=== PATIENT | male | born 1960 | race Caucasian/White ===

== ENCOUNTER → 2019-06-13 | Outpatient (CLI) | payer SELFPAY ==
[2019-06-13 18:18] LABS: ALB/GLOB Ratio 1.1 RATIO (0.9-2.4); AST(SGOT) 24 U/L (15-37); Alanine Aminotransfer ALT/SGPT 33 U/L (16-61); Albumin, Serum 4.1 g/dL (3.2-5.0); Alkaline Phosphatase 66 U/L (45-117); Anion Gap 6 (5-15); BUN 14 mg/dL (7-18); BUN/Creat Ratio 11.6 RATIO (10-20); Calcium,Total 9.3 mg/dL (8.5-10.1); Chloride 106 mmol/L (98-107); Cholesterol 150 mg/dL (200); Creatinine, Serum 1.21 mg/dL (0.70-1.30); EST Glomerular Filtration Rate 65 mL/min (>60); Est Glom Filt Rate - Afr Amer 79 mL/min (>60); Globulin 3.8 g/dL (2.2-4.2); Glucose 80 mg/dL (74-106); High Density Lipoprotein 70 mg/dL; PSA,Total - Annual Screen 2.15 ng/mL (0.00-4.00); Potassium 3.9 mmol/L (3.5-5.1); Protein, Total 7.9 g/dL (6.4-8.2); Sodium Level 139 mmol/L (136-145); Triglycerides 49 mg/dL; Very Low Density Lipoprotein 10 mg/dL (5-40)
== END | disposition home or self-care (01) ==
LOC: MFPLAB 14:40
PROVIDERS: Nurse Practitioner Family; Visit Provider Family Medicine
DX: E78.5 Hyperlipidemia, unspecified (principal); Z12.5 Encounter for screening for malignant neoplasm of prostate
CPT/HCPCS: 36415; 80053; 80061; 84153; G0103

== ENCOUNTER 2020-07-13 08:00 | Outpatient (RCR) | payer SELFPAY ==
--- NOTE | 2020-06-08 11:49 | HP.PTEVAL ---
Patient's Visit Information KEVIN ARNOLD is a 60 year old M referred to Physical Therapy by Dr. Oscar Cruz MD with a diagnosis of LPB with Sciatica. Date of Evaluation: 06/08/20 Physical Therapist: Nahomi Galindo DPT - Visit Plan Frequency: 2x /Week Duration: 4 Weeks Plan: Willie next visit for evaluation of Cherry - Subjective Patient reports that he has done something to his back- bending over to pick something up it popped and he fell over- fathers day weekend. 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 This has happened before but has always gone away. Pain is located down the left leg on the outside and to the toes- has N/T in the toes- more spot local pain throughout and in the left buttock. Sitting bothers him the most- he can stand and walk- can ride a bike without pain. Sleep: not disturbed- right side sleeper. Laying on his belly and doing press ups seems to help. Anthony came him a muscle relaxer and he had some Naproxen that he is also taking with it which really helps. Morning is worse and as he goes throughout the day it gets better. Worst: 05/09 Best: 03/09. Constant ache down the leg. No loss or change in bowel or bladder. Has had intermittent back pain throughout the years 2-3 times but normally on the right side. Work: traveling in the car a lot- hard to get in vs out. PMHx: cholesterol Meds: statin - Objective Posture: FH, RS- can correct but does not maintain even with back support and lumbar roll. Gait: no deviation noted- good arm swing and trunk rotation. ROM: WNL in all planes reports pain with lumbar flexion. Sensation: diminished on left lateral calf and toes. Reflex: dimished on the left. Palpation: not tender to touch. Strength: Core: fair minus, Hip: 4+/5, Knee: 5/5, Ankle: 5/5. Flex: HS: severe, Gastroc: severe. Special Test: prone: diminished symptoms flexion:increases symptoms - Goals Goal 1:: Patient will be I with HEP and progression Goal Time Frame: 4-6 Weeks Goal 2:: Patient will maintain proper posture t/o tx session to demo increased core s/s. Goal Time Frame: 4-6 Weeks Goal 3:: Patient will report no s/s down the left le Goal Time Frame: 4-6 Weeks - Rehabilitation Potential Physical Therapy Diagnosis: Patient presents with hypomobility- he has decreased ROM, strength, flex and muscular endurance leading to poor posture and increased pain with ADL's. Rehabilitation Potential: Good - Anticipated Interventions Patient/Client Instruction: Educate patient on: Benefits of Fitness Program Therapeutic Exercise to Include: Strength training, Endurance training, Balance training, Coordination, Agility training, Body mechanics, Postural training, Flexibilty training, Gait and locomotor training, Passive ROM, Active ROM, Dynamic Lumbar Stabilization, Cherry Exercises, Scapular Strength/Stabilization For the Purpose of:: To improve muscle performance and motor function TENS: Yes Cryotherapy (ice pack, ice massage): Yes Thermo therapy (hot pack): Yes For the Purpose of:: To decrease pain Thank you for the opportunity to evaluate your patient. For Medicare and Medicare HMO plans, please review the plan of care and approve it. It will need to be FAXED BACK to us at [phone] for Medicare purposes. For Medicare only, by signing this I certify the plan of care. Please let me know if there are questions or concerns regarding this plan of care. Physician Signature: Date:
--- NOTE | 2020-08-27 16:18 | HP.PT.NRP ---
KEVIN ARNOLD was seen in my office for initial evaluation on 06/08/20. The following Plan of Care was established for this patient: Initial Frequency: 2x /Week Initial Duration: 4 Weeks Patient/Client Instruction: Educate patient on: Benefits of Fitness Program Therapeutic Exercise to Include: Strength training, Endurance training, Balance training, Coordination, Agility training, Body mechanics, Postural training, Flexibilty training, Gait and locomotor training, Passive ROM, Active ROM, Dynamic Lumbar Stabilization, Cherry Exercises, Scapular Strength/Stabilization For the Purpose of:: To improve muscle performance and motor function TENS: Yes Cryotherapy (ice pack, ice massage): Yes Thermo therapy (hot pack): Yes For the Purpose of:: To decrease pain This patient was last seen in our office . Pertinent comments regarding their Physical therapy will appear below: Patient has not returned to PT in over 6 weeks- appropriate for d/c and return to MD for further evaluation as needed. At this point I will be discontinuing this patient from physical therapy. I would be happy to see this patient again in the future if found appropriate by the physician. Thank you! Nahomi Galindo DPT
== END 2020-07-13 19:00 | disposition home or self-care (01) ==
LOC: PT 08:00
PROVIDERS: Referring Provider Family Medicine; Visit Provider Family Medicine
DX: M54.40 Lumbago with sciatica, unspecified side (principal)
CPT/HCPCS: 97014; 97110; 97162; G0283

== ENCOUNTER → 2020-08-09 16:55 | Outpatient (CLI) | payer SELFPAY ==
--- NOTE | 2020-08-09 17:08 | MRI_ITS ---
STUDY: MRI LUMBAR SPINE WITHOUT CONTRAST REASON FOR EXAM: Male, 60 years old. back pain, numbness down left leg to foot TECHNIQUE: Standardized fat and water weighted pulse sequences were obtained in the sagittal and axial planes. COMPARISON: None FINDINGS: T12-L1: Narrowed disc space with desiccation of the disc. No focal disc protrusion. Normal bilateral facet joints. Normal central canal and bilateral lateral recesses. Normal bilateral intervertebral neural foramina. Normal lumbar lordosis. There is no substantial scoliosis. Normal conus medullaris that terminates at T12-L1 L1-2: Narrowed disc space with mild endplate spurring. Desiccation of the disc and minimal annular bulge.. Normal bilateral facet joints. Normal central canal and bilateral lateral recesses. Normal bilateral intervertebral neural foramina. L2-3: Normal endplates. Normal disc height, hydration and morphology. Normal bilateral facet joints. Normal central canal and bilateral lateral recesses. Normal bilateral intervertebral neural foramina. L3-4: Normal endplates. Normal disc height, hydration and morphology. Normal bilateral facet joints. Normal central canal and bilateral lateral recesses. Normal bilateral intervertebral neural foramina. L4-5: Normal endplates. Normal disc height, desiccation and mild annular bulge.. Bilateral facet arthropathy and thickening of ligamenta flava slightly greater on the left. Normal central canal and bilateral lateral recesses. Mild bilateral neuroforaminal encroachment. L5-S1: Normal endplates. Normal disc height, desiccation and minor annular bulge with tiny central disc protrusion.. Mild facet arthropathy and thickening of ligamenta flava. Normal central canal and bilateral lateral recesses. Mild bilateral neuroforaminal stenosis. Normal visualized sacral ala. Normal visualized paraspinous soft tissue structures. MRI/Spine Lumbar (Routine) IMPRESSION: No evidence for acute fracture or other significant bony pathology.. Mild spondylosis. Mild spinal stenosis at L4-5 and L5-S1 secondary to bulging annuli and facet arthropathy with thickening of ligamenta flava Electronically Signed: Kenton Santoro MD at 21:46 EDT , Service support ,
== END ==
PROVIDERS: PCP Family Medicine; Referring Provider Family Medicine; Visit Provider Family Medicine
DX: M54.9 Dorsalgia, unspecified (principal)
CPT/HCPCS: 72148

== ENCOUNTER → 2020-08-22 08:06 | Outpatient (CLI) | payer SELFPAY ==
[2020-08-22 10:20] LABS: Anion Gap 3 (5-15); BUN 14 mg/dL (7-18); BUN/Creat Ratio 11.7 RATIO (10-20); Calcium,Total 9.6 mg/dL (8.5-10.1); Chloride 105 mmol/L (98-107); Cholesterol 167 mg/dL (200); EST Glomerular Filtration Rate 65 mL/min (>60); Est Glom Filt Rate - Afr Amer 79 mL/min (>60); Glucose 98 mg/dL (74-106); High Density Lipoprotein 70 mg/dL; Potassium 4.1 mmol/L (3.5-5.1); Sodium Level 137 mmol/L (136-145); Triglycerides 79 mg/dL; Very Low Density Lipoprotein 16 mg/dL (5-40)
== END ==
PROVIDERS: PCP Family Medicine; Referring Provider Family Medicine; Visit Provider Family Medicine
DX: I10 Essential (primary) hypertension (principal); E78.5 Hyperlipidemia, unspecified
CPT/HCPCS: 36415; 80048; 80061

== ENCOUNTER 2022-01-31 11:11 | Outpatient (CLI) | payer SELFPAY ==
[2022-01-31 15:29] LABS: Anion Gap 3 (5-15); BUN 15 mg/dL (7-18); BUN/Creat Ratio 12.4 RATIO (10-20); Calcium,Total 10.3 mg/dL (8.5-10.1); Chloride 106 mmol/L (98-107); Cholesterol 173 mg/dL (200); Creatinine, Serum 1.21 mg/dL (0.70-1.30); EST Glomerular Filtration Rate 64 mL/min (>60); Est Glom Filt Rate - Afr Amer 78 mL/min (>60); Glucose 94 mg/dL (74-106); High Density Lipoprotein 66 mg/dL; PSA,Total - Annual Screen 2.88 ng/mL (0.00-4.00); Potassium 4.4 mmol/L (3.5-5.1); Sodium Level 136 mmol/L (136-145); Triglycerides 54 mg/dL; Very Low Density Lipoprotein 11 mg/dL (5-40)
== END 2022-01-31 23:59 | disposition home or self-care (01) ==
LOC: MFPLAB 11:12
PROVIDERS: PCP Family Medicine; Referring Provider Family Medicine; Visit Provider Family Medicine
DX: Z00.00 Encounter for general adult medical examination without abnormal findings (principal); Z12.5 Encounter for screening for malignant neoplasm of prostate
CPT/HCPCS: 36415; 80048; 80061; 84153; G0103

== ENCOUNTER 2022-02-17 15:45 | Outpatient (CLI) | payer SELFPAY ==
--- NOTE | 2022-02-17 11:54 | LES_PTH ---
PATIENT: KEVIN ARNOLD [facility] U#:[id number] AGE/SX: 61/M ROOM: RE02/17/[address]: Dr. Suresh Lowery MD : 1960 BED: DIS: 02/17/2022 SPEC #: [id number] RECD: 02/17/22 16:18 STATUS: KALIE THORNE #: [id number] AURE: 02/17/22 11:[address]: Suresh Lowery DEPT: SURGICAL PATHOLOGY RECD BY: Brooklynn Murillo ENTERED: 02/18/22 08:19 SP TYPE: Lesion OTHR DR: Dr. Abelardo Cruz MD Tissues: Skin of forearm, NOS Procedures: Surgery Specimen Level IV HEADER OPERATION: Skin excision PRE-OP DIAGNOSIS: Suspicious skin lesion TISSUE SUBMITTED: Right forearm MICROSCOPIC DIAGNOSIS Skin lesion of right forearm, biopsy: Verrucous keratosis with associated cutaneous form. See comment. AM:munira 02/19/2022 COMMENT The lesion appears to have been excised in the planes examined. MICROSCOPIC DESCRIPTION Slides are reviewed. GROSS DESCRIPTION Received in fixative is one container labeled with the patient's name and designated right forearm. The specimen consists of a punch biopsy of nash-white skin measuring 0.6 cm in diameter and 0.5 cm in length. The specimen is inked, bisected and submitted entirely in one cassette. / SJ:rg 02/18/2022 TC:5 [facility]: [id number]
== END 2022-02-17 23:59 | disposition home or self-care (01) ==
LOC: LABSPEC 15:46
PROVIDERS: PCP Family Medicine; Visit Provider Family Medicine
DX: L82.0 Inflamed seborrheic keratosis (principal)
CPT/HCPCS: 88305

== ENCOUNTER → 2023-07-14 | Outpatient (CLI) | payer SELFPAY ==
[2023-07-14 10:35] LABS: Anion Gap 4 (5-15); BUN 19 mg/dL (7-18); Calcium,Total 9.5 mg/dL (8.5-10.1); Chloride 107 mmol/L (98-107); Cholesterol 151 mg/dL (200); Creatinine, Serum 1.27 mg/dL (0.70-1.30); EST Glomerular Filtration Rate 61 mL/min (>60); Est Glom Filt Rate - Afr Amer 73 mL/min (>60); Glucose 108 mg/dL (74-106); High Density Lipoprotein 70 mg/dL; PSA,Total - Annual Screen 3.47 ng/mL (0.00-4.00); Potassium 4.1 mmol/L (3.5-5.1); Sodium Level 139 mmol/L (136-145); Triglycerides 66 mg/dL; Very Low Density Lipoprotein 13 mg/dL (5-40)
== END | disposition home or self-care (01) ==
PROVIDERS: PCP Family Medicine; Referring Provider Family Medicine; Visit Provider Family Medicine
DX: Z12.5 Encounter for screening for malignant neoplasm of prostate (principal); E78.5 Hyperlipidemia, unspecified; I10 Essential (primary) hypertension
CPT/HCPCS: 36415; 80048; 80061; 84153; G0103

== ENCOUNTER → 2024-06-10 | Outpatient (CLI) | payer MEDICARE, SELFPAY ==
[2024-06-10 11:50] LABS: Anion Gap 6 (5-15); BUN 27 mg/dL (7-18); BUN/Creat Ratio 21.4 RATIO (10-20); Calcium,Total 9.5 mg/dL (8.5-10.1); Chloride 107 mmol/L (98-107); Cholesterol 161 mg/dL (200); Creatinine, Serum 1.26 mg/dL (0.70-1.30); EST Glomerular Filtration Rate 61 mL/min (>60); Est Glom Filt Rate - Afr Amer 74 mL/min (>60); Glucose 100 mg/dL (74-106); High Density Lipoprotein 65 mg/dL; PSA,Total - Annual Screen 1.59 ng/mL (0.00-4.00); Potassium 4.3 mmol/L (3.5-5.1); Sodium Level 139 mmol/L (136-145); Triglycerides 72 mg/dL; Very Low Density Lipoprotein 14 mg/dL (5-40)
== END | disposition home or self-care (01) ==
LOC: MTLAB 07:19
PROVIDERS: PCP Family Medicine; Referring Provider Family Medicine; Visit Provider Family Medicine
DX: Z00.00 Encounter for general adult medical examination without abnormal findings (principal); Z12.5 Encounter for screening for malignant neoplasm of prostate
CPT/HCPCS: 36415; 80048; 80061; 84153; G0103

== ENCOUNTER 2024-07-26 08:00 | Day surgery (SDC) | payer MEDICARE, SELFPAY ==
[2024-07-26] VITALS (8 sets, daily range): BP systolic 91–134; BP diastolic 60–88; PULSE 71–73; RESP 16; TEMP 36.4–37.1; O2SAT 93–100; BMI 26.3
--- NOTE | 2024-07-26 08:04 | PCM.PRE.AN2 ---
ASA Classification* ASA Classification ASA Classification: 2 Assessment & Plan Anesthesia* Anesthesia Assessment Anesthesia Assessment: Discussed sedation and/or anesthesia options, risks, benefits, and alternatives with patient/parents/legal guardian/POA. Questions invited. The patient/parents/legal guardian/POA seems to understand and agrees to proceed with anesthesia plan. Reviewed the physical assessment, medical history, allergy history and patient home medications list prior to surgery/procedure/anesthetic and documented any changes. Performed airway and anesthesia risk assessments. Anesthesia Type Anesthesia Type: MAC Anesthesia Focused Assessment* Airway Assessment Mouth opens: >3 cm Mallampati Score: II Focused Labs Anesthesia Preop lab: CBC CHEMISTRY Potassium 4.3 mmol/L (3.5-5.1) 06/10/24 07:21 Sodium 139 mmol/L (136-145) 06/10/24 07:21 BUN 27 mg/dL (7-18) H 06/10/24 07:21 Creatinine 1.26 mg/dL (0.70-1.30) 06/10/24 07:21 Glucose 100 mg/dL (74-106) 06/10/24 07:21 COAG Pre-Assessment Diagnosis/Proposed Procedure Planned Operative Procedure(s): CSCOPE OA Anesthesia History Anesthesia History - acute care registered nurse: Anesthesia History - acute care registered nurse Hx Hospitalization No 07/22/24 09:36 Any Problems With Anesthesia No 07/22/24 09:36 Cholinesterase deficiency No 07/22/24 09:36 You/Your Family Experience No 07/22/24 09:36 fever (hyperthermia) with Relationship Recent Exposure to Contagious Disease Does patient have nerve No 07/22/24 09:36 stimulator Patient instructed to have device shut off --Does patient have Pacemaker or ICD? When Was Last Pacemaker Check QUESTION #4 FULL TEXT: You/Your Family Experience fever (hyperthermia) with Anesthesia Last Oral Intake Last Oral intake: Last Oral Intake NPO since Meds taken in AM with sips of water? Meds patient instructed to take am of surgery PONV PONV - acute care registered nurse: PONV - acute care registered nurse Female No 07/22/24 09:36 HX of Motion Sickness No 07/22/24 09:36 HX of N/V After Surgery No 07/22/24 09:36 Non-Smoker Yes 07/22/24 09:36 Duration of Surgery greater No 07/22/24 09:36 than 60 minutes Number of Risk Factors 1 07/22/24 09:36 PONV Score Low Risk 07/22/24 09:36 Height & Weight Height & Weight: Anesthesia: Height & Weight Height 6 ft 4 in 06/06/24 11:55 Respiratory Assessment Respiratory Assessment - acute care registered nurse: Respiratory Tract Infection Hx - acute care registered nurse Hx Respiratory Tract Infection No 07/22/24 09:36 STOP Sleep Apnea STOP Sleep Apnea - acute care registered nurse: STOP Sleep Apnea - acute care registered nurse Hx Hypertension Yes: CONTROLLED WITH MED 07/22/24 09:36 Hx Sleep Apnea No 07/22/24 09:36 CPAP BIPAP Do you snore loudly (louder Yes 07/22/24 09:36 than talking or can be heard Do you often feel tired/ No 07/22/24 09:36 fatigued/ sleepy during daytime? Has anyone observed you stop No 07/22/24 09:36 breathing during sleep? STOP Results Positive 07/22/24 09:36 QUESTION #5 FULL TEXT : Do you snore loudly (louder than talking or can be heard through closed doors)? 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 Specify any problems Hx of Preganancy in last 3 N/A 07/22/24 09:36 Months Nurse Filling Out Transfusion DSCHRIBER 07/22/24 09:36 & Questions: Date: 07/22/24 07/22/24 09:36 Time: 09:37 07/22/24 09:36 Patient unable to answer at this time (ie. confused, unrespo /Reproduction History /Reproductive History - acute care registered nurse: /Reproductive Hx- acute care registered nurse Hx Now No 07/22/24 09:36 Gestational Age (in weeks): EDC: Hx Hx Para Hx Section SAB No 07/22/24 09:36 Active Medications Active Medications: Current Medications Generic Name Dose Route Start Last Admin Trade Name Freq PRN Reason Stop Dose Admin Lactated Ringer's 1,000 mls @ 15 mls/hr 07/26/24 08:15 [facility] Medical History (Updated 07/22/24 @ 09:43 by Lilli Ramon) Hemorrhoids Wears contact lenses Cancer Alcohol use Back pain Gastric reflux Former smoker Leg cramps History of pain when walking Hyperlipidemia HTN (hypertension) Hx of colonic polyp Home Medications ?Medication ?Instructions ?Recorded ?Last Taken ?Type lisinopril 5 mg tablet 5 mg PO QHS 06/06/24 Unknown History uajjlzaw-xu-[id number] 300 mcg-K 60 1 tab PO DAILY 06/06/24 Unknown History mcg-lycop 600 mcg-lutein 300 mcg tablet (Centrum Silver Ultra Men's) naproxen 500 mg tablet,delayed 500 mg PO BID 06/06/24 Unknown History release omega-3 fatty acids-fish oil 360 1 cap PO DAILY 06/06/24 Unknown History mg-1,200 mg capsule (Fish Oil) simvastatin 40 mg tablet 40 mg PO DAILY 06/06/24 Unknown History vitamin B complex 1 tab PO DAILY 06/06/24 Unknown History esomeprazole magnesium 40 mg 40 mg PO .3 DAYS WEEKLY 07/22/24 Unknown History capsule,delayed release (Nexium) Allergy/AdvReac Type Severity Reaction Status Date / Time No Known Allergies Allergy Verified 07/22/24 09:34 Family History (Updated 06/06/24 @ 11:45 by Zoe Khoury) Mother Colon polyps Surgical History (Updated 07/22/24 @ 09:42 by Lilli Ramon) History of esophagogastroduodenoscopy (EGD) Hx of colonoscopy Social History (Updated 06/06/24 @ 11:47 by Zoe Khoury) household members: spouse current occupational status: employed current occupation: Self employed Smoking Status: Former smoker substance use type: does not use Review of Systems (Anesthesia) ROS Narrative System reviewed and no additional complaints, except as documented.
[2024-07-26] MEDS: Lactated Ringers 1,000 ML 15 ML IV (08:18)
--- NOTE | 2024-07-26 08:26 | PRE.ANES_ITS ---
ASA Classification* ASA Classification ASA Classification: 2 Assessment & Plan Anesthesia* Anesthesia Assessment Anesthesia Assessment: Discussed sedation and/or anesthesia options, risks, benefits, and alternatives with patient/parents/legal guardian/POA. Questions invited. The patient/parents/legal guardian/POA seems to understand and agrees to proceed with anesthesia plan. Reviewed the physical assessment, medical history, allergy history and patient home medications list prior to surgery/procedure/anesthetic and documented any changes. Performed airway and anesthesia risk assessments. Anesthesia Type Anesthesia Type: MAC History Source History Obtained from:: Patient and Chart Anesthesia Focused Assessment* Temperature: 97.5 F Pulse Rate: 73 Blood Pressure: 134/88 Respiratory Rate: 16 Pulse Ox: 100 Oxygen Delivery Method: Room Air Airway Assessment Mouth opens: >3 cm Mallampati Score: II Teeth Condition: Caps/Crowns (Right upper crown is tight.) Neck Range of motion (ROM): Full ROM Focused Labs Anesthesia Preop lab: CBC CHEMISTRY Potassium 4.3 mmol/L (3.5-5.1) 06/10/24 07:21 Sodium 139 mmol/L (136-145) 06/10/24 07:21 BUN 27 mg/dL (7-18) H 06/10/24 07:21 Creatinine 1.26 mg/dL (0.70-1.30) 06/10/24 07:21 Glucose 100 mg/dL (74-106) 06/10/24 07:21 COAG Pre-Assessment Diagnosis/Proposed Procedure Planned Operative Procedure(s): CSCOPE OA Anesthesia History 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 When Was Last Pacemaker Check QUESTION #4 FULL TEXT: You/Your Family Experience fever (hyperthermia) with Anesthesia Last Oral Intake Last Oral intake: Last Oral Intake NPO since 05:00 07/26/24 08:15 Meds taken in AM with sips of Yes 07/26/24 08:15 water? Meds patient instructed to NEXIUM 07/26/24 08:15 take am of surgery Any additional information?: Yes NPO since: 06:00 (Patient finished prep at 6 AM.) Meds taken in AM with sips of water?: Yes PONV PONV - forest worker: PONV - forest worker Female No 07/22/24 09:36 HX of Motion Sickness No 07/22/24 09:36 HX of N/V After Surgery No 07/22/24 09:36 Non-Smoker Yes 07/22/24 09:36 Duration of Surgery greater No 07/22/24 09:36 than 60 minutes Number of Risk Factors 1 07/22/24 09:36 PONV Score Low Risk 07/22/24 09:36 Height & Weight Height & Weight: Anesthesia: Height & Weight Height 6 ft 4 in 07/26/24 08:15 Weight: 98 kg 07/26/24 08:15 Body Mass Index (BMI) 26.3 07/26/24 08:15 Respiratory Assessment Respiratory Assessment - forest worker: Respiratory Tract Infection Hx - forest worker Hx Respiratory Tract Infection No 07/22/24 09:36 STOP Sleep Apnea STOP Sleep Apnea - forest worker: STOP Sleep Apnea - forest worker Hx Hypertension Yes: CONTROLLED WITH MED 07/22/24 09:36 Hx Sleep Apnea No 07/22/24 09:36 CPAP BIPAP Do you snore loudly (louder Yes 07/22/24 09:36 than talking or can be heard Do you often feel tired/ No 07/22/24 09:36 fatigued/ sleepy during daytime? Has anyone observed you stop No 07/22/24 09:36 breathing during sleep? STOP Results Positive 07/22/24 09:36 QUESTION #5 FULL TEXT : Do you snore loudly (louder than talking or can be heard through closed doors)? Tobacco Use History Tobacco Use History - forest worker: Tobacco Use History - forest worker Tobacco Use Smoking Status Former smoker 07/22/24 09:36 Hx Tobacco Use No 07/22/24 09:36 Years Smoking Packs Smoked per Day Smoking Cessation Date was No - quit smoking greater 07/22/24 09:36 within the last 15 years than 15 years ago Hx Smoking Cessation Date Hx Smoking Cessation No 07/22/24 09:36 Counseling Hematologic Medial History Hematologic Hx - forest worker: Hematologic Medical Hx - infrastructure technician Hx of Blood Transfusion No 07/22/24 09:36 Hx of Transfusion in last 3 No 07/22/24 09:36 Months Date of Last Transfusion (if within last 3 months) Ever experience any problems No 07/22/24 09:36 with transfusion(s)? Specify any problems Hx of Preganancy in last 3 N/A 07/22/24 09:36 Months Nurse Filling Out Transfusion DSCHRIBER 07/22/24 09:36 & Questions: Date: 07/22/24 07/22/24 09:36 Time: 09:37 07/22/24 09:36 Patient unable to answer at this time (ie. confused, unrespo /Reproduction History /Reproductive History - forest worker: /Reproductive Hx- forest worker Hx Now No 07/22/24 09:36 Gestational Age (in weeks): EDC: Hx Hx Para Hx Section SAB No 07/22/24 09:36 Active Medications Active Medications: Current Medications Generic Name Dose Route Start Last Admin Trade Name Freq PRN Reason Stop Dose Admin Lactated Ringer's 1,000 mls @ 15 mls/hr 07/26/24 08:15 07/26/24 08:18 IV 15 mls/hr .Q48H [facility] Administration PFSH Medical History (Updated 07/22/24 @ 09:43 by Lilli Ramon) Hemorrhoids Wears contact lenses Cancer Alcohol use Back pain Gastric reflux Former smoker Leg cramps History of pain when walking Hyperlipidemia HTN (hypertension) Hx of colonic polyp Home Medications ?Medication ?Instructions ?Recorded ?Last Taken ?Type lisinopril 5 mg tablet 5 mg PO QHS 06/06/24 07/25/24 History sbgigeyj-gb-ggxom 300 mcg-K 60 1 tab PO DAILY 06/06/24 Unknown History mcg-lycop 600 mcg-lutein 300 mcg tablet (Centrum Silver Ultra Men's) naproxen 500 mg tablet,delayed 500 mg PO BID 06/06/24 07/25/24 History release omega-3 fatty acids-fish oil 360 1 cap PO DAILY 06/06/24 Unknown History mg-1,200 mg capsule (Fish Oil) simvastatin 40 mg tablet 40 mg PO DAILY 06/06/24 07/25/24 History vitamin B complex 1 tab PO DAILY 06/06/24 Unknown History esomeprazole magnesium 40 mg 40 mg PO .3 DAYS WEEKLY 07/22/24 07/26/24 History capsule,delayed release (Nexium) Allergy/AdvReac Type Severity Reaction Status Date / Time No Known Allergies Allergy Verified 07/26/24 08:13 Family History (Updated 06/06/24 @ 11:45 by Zoe Khoury) Mother Colon polyps Surgical History (Updated 07/22/24 @ 09:42 by Lilli Ramon) History of esophagogastroduodenoscopy (EGD) Hx of colonoscopy Social History (Updated 06/06/24 @ 11:47 by Zoe Khoury) household members: spouse current occupational status: employed current occupation: Self employed Smoking Status: Former smoker substance use type: does not use Review of Systems (Anesthesia) ROS Narrative System reviewed and no additional complaints, except as documented.
--- NOTE | 2024-07-26 09:03 | H&P.OPEN ---
HPI - General HPI Narrative KEVIN ARNOLD, is a 64 M who presents for screening colonoscopy. His last [place] colonoscopy was over 10 years ago. The patient reports no abdominal pain. He does occasionally have bright red blood when he wipes and he attributes this to hemorrhoids. He has no family history of colon cancer. [facility] Medical History (Updated 07/22/24 @ 09:43 by Lilli Ramon) Hemorrhoids Wears contact lenses Cancer Alcohol use Back pain Gastric reflux Former smoker Leg cramps History of pain when walking Hyperlipidemia HTN (hypertension) Hx of colonic polyp Home Medications ?Medication ?Instructions ?Recorded ?Last Taken ?Type lisinopril 5 mg tablet 5 mg PO QHS 06/06/24 07/25/24 History lrbzdzzr-zb-ctsty 300 mcg-K 60 1 tab PO DAILY 06/06/24 Unknown History mcg-lycop 600 mcg-lutein 300 mcg tablet (Centrum Silver Ultra Men's) naproxen 500 mg tablet,delayed 500 mg PO BID 06/06/24 07/25/24 History release omega-3 fatty acids-fish oil 360 1 cap PO DAILY 06/06/24 Unknown History mg-1,200 mg capsule (Fish Oil) simvastatin 40 mg tablet 40 mg PO DAILY 06/06/24 07/25/24 History vitamin B complex 1 tab PO DAILY 06/06/24 Unknown History esomeprazole magnesium 40 mg 40 mg PO .3 DAYS WEEKLY 07/22/24 07/26/24 History capsule,delayed release (Nexium) Allergy/AdvReac Type Severity Reaction Status Date / Time No Known Allergies Allergy Verified 07/26/24 08:13 Family History (Updated 06/06/24 @ 11:45 by Zoe Khoury) Mother Colon polyps Surgical History (Updated 07/22/24 @ 09:42 by Lilli Ramon) History of esophagogastroduodenoscopy (EGD) Hx of colonoscopy Social History (Updated 06/06/24 @ 11:47 by Zoe Khoury) household members: spouse current occupational status: employed current occupation: Self employed Smoking Status: Former smoker substance use type: does not use Past Medical/Surgical History Planned Operation Planned Operative Procedure(s): CSCOPE OA Previous Hospitalizations/Surgeries HX Hospitalizations: No Any Problems With Anesthesia: No You/Your Family Experience Fever (Hyperthermia) With Anes: No Cholinesterase deficiency: No Cardiovascular Hx Hypertension: Yes (CONTROLLED WITH MED) Respiratory Hx Sleep Apnea: No Hx Respiratory Tract Infection/Cold (presently): No Do You Snore Loudly (louder than talking or can be heard): Yes Do You Often Feel Tired/ Fatigued/ Sleepy Dring Daytime?: No Has Anyone Observed You Stop Breathing During Sleep?: No Result (for STOP score): Positive Smoking Status: Former smoker Neurological Does patient have nerve stimulator: No Reproduction : No Miscellaneous Recent Exposure to Contagious Disease: No Allergies No Known Allergies Allergy (Verified 07/26/24 08:13) Discharge Is Pt Admitted From a Retirement, or a Retirement: No After D/C, Where Do you Plan to Go: Return Home Vital Signs Vital Signs Vital Signs: 07/26/24 08:15 07/26/24 08:15 07/26/24 08:31 Temperature 97.5 F L 97.5 F L Temperature Source Temporal Pulse Rate 73 73 Respiratory Rate 16 16 Respiratory Pattern Normal Blood Pressure 134/88 H 134/88 H Blood Pressure Mean 103 Blood Pressure Source Monitor Blood Pressure Position Sitting Blood Pressure Location Right Arm Pulse Ox 100 100 Oxygen Delivery Method Room Air Room Air Weight Weight: 216 lb 0.848 oz Body Mass Index (BMI) 26.3 Physical Exam Const alert and oriented x3 HEENT normocephalic Eyes PERRL Resp normal respiratory effort and normal air movement Cardio regular rate and regular rhythm GI soft to palpation, non-tender and non-distended Extremity normal to inspection Assessment & Plan Assessment/Plan (1) Encounter for screening for malignant neoplasm of colon: PLAN: I explained endoscopy in detail to the patient. I explained the risks including but not limited to stroke or heart attack with anesthesia, perforation of the GI tract, bleeding, infection. I explained that any of these could necessitate further emergency surgery. The patient understands and all questions were answered sufficiently. The patient wishes to proceed with procedure. Ed Sandoval MD Pager: [facility] [address] [place] [address] [address] [place] [address] Office: Surgery Risks - Colonoscopy Risks Include but are not Limited To: Risks include but are not limited to: Bleeding, perforation requiring further surgery, inability to complete colonoscopy requiring barium enema.
--- NOTE | 2024-07-26 09:05 | OP.COLON_ITS ---
Patient Name: Santos Betancourt Procedure Date: 07/26/2024 8:42 AM Date of : 1960 Age: 64 Procedure: Colonoscopy Indications: Screening for colorectal malignant neoplasm Providers: Ed Sandoval MD Medicines: Propofol per Anesthesia Patient Profile: This is a 64 year old male. Refer to note in patient chart for documentation of history and physical. Last Colonoscopy: more than 10 years ago. Complications: No immediate complications. Estimated blood loss: Minimal. Procedure: Pre-Anesthesia Assessment: - Prior to the procedure, a History and Physical was performed, and patient medications and allergies were reviewed. The patient's tolerance of previous anesthesia was also reviewed. The risks and benefits of the procedure and the sedation options and risks were discussed with the patient. All questions were answered, and informed consent was obtained. Prior Anticoagulants: The patient has taken no anticoagulant or antiplatelet agents. After reviewing the risks and benefits, the patient was deemed in satisfactory condition to undergo the procedure. After I obtained informed consent, the scope was passed under direct vision. Throughout the procedure, the patient's blood pressure, pulse, and oxygen saturations were monitored continuously. The Colonoscope was introduced through the anus and advanced to the cecum, identified by appendiceal orifice and ileocecal valve. The colonoscopy was performed without difficulty. The patient tolerated the procedure well. The quality of the bowel preparation was good. The ileocecal valve, appendiceal orifice, and rectum were photographed. Scope In: 8:52:17 AM Scope Withdrawal Time 0 hours 4 minutes 19 seconds Scope Out: 9:02:51 AM Total Procedure Duration Time 0 hours 10 minutes 34 seconds Findings: The entire examined colon appeared normal on direct and retroflexion views. Impression: - The entire examined colon is normal on direct and retroflexion views. - No specimens collected. Recommendation: - Discharge patient to home. - Resume previous diet. - Continue present medications. - Repeat colonoscopy in 10 years for screening purposes. Procedure Code(s): --- Professional --- 50936, Colonoscopy, flexible; diagnostic, including collection of specimen(s) by brushing or washing, when performed (separate procedure) Diagnosis Code(s): --- Professional --- Z12.11, Encounter for screening for malignant neoplasm of colon CPT copyright 2021 [employer]. All rights reserved. The codes documented in this report are preliminary and upon painter rough review may be revised to meet current compliance requirements. Ed Sandoval MD 07/26/2024 9:05:43 AM This report has been signed electronically. Number of Addenda: 0 Note Initiated On: 07/26/2024 8:42 AM
--- NOTE | 2024-07-26 09:06 | OP.CCLET_ITS ---
07/26/2024 Suresh Lowery MD [address] [phone] Re : Colonoscopy procedure for Santos Betancourt Dear Dr. Lowery This procedure was performed on Friday, July 26, 2024. My impressions and recommendations are as follows: Impressions : - The entire examined colon is normal on direct and retroflexion views. - No specimens collected. Recommendations : - Discharge patient to home. - Resume previous diet. - Continue present medications. - Repeat colonoscopy in 10 years for screening purposes. My findings are described in the full procedure note, which is enclosed. If I can be of further assistance, please feel free to contact me at Doctor phone number(s): , Work: . Sincerely, Ed Sandoval MD 07/26/2024 9:05:43 AM This report has been signed electronically.
--- NOTE | 2024-07-26 09:09 | PCM.POST.ANE ---
Anesthesia: Postop Eval I Current Vital Signs Temperature: 97.8 F Pulse Rate: 72 Blood Pressure: 91/60 Respiratory Rate: 16 Pulse Ox: 94 Oxygen Delivery Method: Room Air Assessment Airway patent: Yes Spontaneous unlabored respirations: Yes Mental status: Awake and Calm nausea: No Vomiting: No Anesthesia Complication: No Fluid Hydration Crystalloid volume administer (ml): 400 Total IV fluid infused: 400 Progress Note Anesthesia document: Postop Eval 1 completed: Yes
--- NOTE | 2024-07-26 09:21 | POSTOPAN2_ITS ---
Anesthesia Postop Eval I Sum Postop Eval Completion status Anesthesia document: Postop Eval 1 completed: Yes Anesthesia Postop Eval I Summary Anesthesia Postop Eval I Summary: Anesthesia Postop Eval I: Assessment Summary Airway patent Yes 07/26/24 09:09 [email or web address] [email or web address] Spontaneous unlabored Yes 07/26/24 09:09 [email or web address] [email or web address] respirations Mental status Awake,Calm 07/26/24 09:09 [email or web address] [email or web address] nausea No 07/26/24 09:09 EGG [email or web address].[email or web address] Vomiting No 07/26/24 09:09 EGG [email or web address] Anesthesia Postop Eval I: Fluid Summary Crystalloid volume administer 400 07/26/24 09:09 [email or web address] (ml) Colloids volume administered ( ml) Blood Product volume administered (ml) Total IV fluid infused 400 07/26/24 09:09 EGG [email or web address] Anesthesia Postop Eval I: Summary Notes Anesthesia Complication No 07/26/24 09:09 [email or web address] [email or web address] Anesthesia Complication Comment: Post-operative progress note Anesthesia: Postop Eval II Evaluation Mental status: Awake Pain Level: 0 nausea: No Vomiting: No
--- NOTE | 2024-07-26 09:21 | PCM.POSTANE2 ---
Anesthesia Postop Eval I Sum Postop Eval Completion status Anesthesia document: Postop Eval 1 completed: Yes Anesthesia Postop Eval I Summary Anesthesia Postop Eval I Summary: Anesthesia Postop Eval I: Assessment Summary Airway patent Yes 07/26/24 09:09 SENIOR CONTROL SYSTEMS [email or web address] Spontaneous unlabored Yes 07/26/24 09:09 SENIOR CONTROL SYSTEMS ENGINEER.[email or web address] respirations Mental status Awake,Calm 07/26/24 09:09 SENIOR CONTROL SYSTEMS ENGINEER.[email or web address] nausea No 07/26/24 09:09 SENIOR CONTROL SYSTEMS ENGINEER.[email or web address] Vomiting No 07/26/24 09:09 SENIOR CONTROL SYSTEMS ENGINEER.[email or web address] Anesthesia Postop Eval I: Fluid Summary Crystalloid volume administer 400 07/26/24 09:09 SENIOR CONTROL SYSTEMS ENGINEER.GDOTT (ml) Colloids volume administered ( ml) Blood Product volume administered (ml) Total IV fluid infused 400 07/26/24 09:09 SENIOR CONTROL SYSTEMS ENGINEER.[email or web address] Anesthesia Postop Eval I: Summary Notes Anesthesia Complication No 07/26/24 09:09 SENIOR CONTROL SYSTEMS ENGINEER.[email or web address] Anesthesia Complication Comment: Post-operative progress note Anesthesia: Postop Eval II Evaluation Mental status: Awake Pain Level: 0 nausea: No Vomiting: No
== END 2024-07-26 09:42 | disposition home or self-care (01) ==
LOC: EN 08:00 → AC 08:01
PROVIDERS: PCP Family Medicine; Referring Provider Family Medicine; Visit Provider Surgery
PROC: 0DJD8ZZ Inspection of Lower Intestinal Tract, Via Natural or Artificial Opening Endoscopic (ICD-10-PCS; CPT 45378; principal; 2024-07-26 08:55)
DX: Z12.11 Encounter for screening for malignant neoplasm of colon (principal); I10 Essential (primary) hypertension; E78.5 Hyperlipidemia, unspecified; Z87.891 Personal history of nicotine dependence; Z86.010 Personal history of colon polyps; K21.9 Gastro-esophageal reflux disease without esophagitis; Z79.899 Other long term (current) drug therapy
CPT/HCPCS: G0121; J7120

== ENCOUNTER → 2025-08-29 | Outpatient (CLI) | payer MEDICARE, SELFPAY ==
[2025-08-29 16:23] LABS: Anion Gap 11 (5-15); BUN 15 mg/dL (4-19); BUN/Creat Ratio 12.5 RATIO (10-20); Calcium,Total 10.3 mg/dL (7.6-11.0); Carbon Dioxide 26.3 mmol/L (21.0-32.0); Chloride 103 mmol/L (98-108); Glucose 90 mg/dL (70-99); PSA,Total - Annual Screen 2.56 ng/mL (0.02-4.00); Potassium 4.6 mmol/L (3.3-5.1)
== END | disposition home or self-care (01) ==
LOC: MFPLAB 12:28
PROVIDERS: PCP Family Medicine; Referring Provider Family Medicine; Visit Provider Family Medicine
DX: Z13.1 Encounter for screening for diabetes mellitus (principal); Z12.5 Encounter for screening for malignant neoplasm of prostate
CPT/HCPCS: 36415; 80048; 83036; 84153; G0103

== ENCOUNTER → 2025-09-05 | Outpatient (CLI) | payer MEDICARE, SELFPAY ==
[2025-09-05 16:21] LABS: Cholesterol 171 mg/dL (<=200); Low Density Lipoprotein Calc. 89 mg/dL; Triglycerides 81 mg/dL; Very Low Density Lipoprotein 16 mg/dL (5-40); cholesterol:hdl ratio screen 2.58
== END | disposition home or self-care (01) ==
LOC: MFPLAB 09:22
PROVIDERS: PCP Family Medicine; Visit Provider Family Medicine
DX: Z13.220 Encounter for screening for lipoid disorders (principal); Z13.1 Encounter for screening for diabetes mellitus
CPT/HCPCS: 36415; 80061; 83036